=== PATIENT | male | born 1980 | race Caucasian/White ===

== ENCOUNTER → 2018-04-09 16:17 | Outpatient (CLI) | payer OTHER, SELFPAY ==
--- NOTE | 2018-04-09 | DI.MRI.S_ITS ---
PROCEDURE: MR LUMBAR SPINE WO CON INDICATIONS: LOW BACK AND BIALTERAL HIP PAIN. LEFT LEG PAIN TECHNIQUE: Noncontrast sagittal T1 spin echo and T2 fast echo, sagittal STIR, axial T1 and T2 fast spin echo through the lumbar spine. In cases with scoliosis, additional coronal T2 fast spin echo may be performed. COMPARISON: None. FINDINGS: Image quality: Excellent. Alignment and Curvature: There is normal bony alignment. Bone Marrow: Marrow is of normal overall signal. No acute vertebral body compression fractures. Spinal Cord: Conus medullaris terminates at the T12 level. Visualized cord demonstrates normal signal and size. Paraspinous Soft Tissues: No paravertebral masses. An intraosseous hemangiomas present at L1. L1-L2: Normal appearance. L2-L3: Normal appearance. L3-L4: Mild facet and ligamentum flavum hypertrophy. No canal stenosis. No neural foraminal stenosis. L4-L5: Mild disc desiccation. Broad-based disc bulge. Small posterior focal high intensity zone. Mild facet and ligamentum flavum hypertrophy. Mild canal stenosis. No neural foraminal stenosis. The enlarged left facet abuts the exiting left nerve root at this level (series 4, image 13). L5-S1: Normal appearance. IMPRESSION: 1. Mild disc desiccation, disc bulge, and mild canal stenosis at L4-5 2. L4-L5 posterior annular fibrosis tear. 3. Exiting left nerve root at L4-5 abuts the enlarged facet joint. It is unclear whether this may be the etiology of the patient's back pain. 4. No other canal stenosis or foraminal narrowing of the lumbar spine. Dictated by: Augusta Patten M.D. on 04/12/2018 at 8:24 Approved by: Augusta Patten M.D. on 04/12/2018 at 8:28
== END ==
PROVIDERS: PCP Physician Assistant; Visit Provider Physician Assistant
DX: M51.26 Other intervertebral disc displacement, lumbar region (principal); M48.061 Spinal stenosis, lumbar region without neurogenic claudication; M25.552 Pain in left hip; M25.551 Pain in right hip; M79.605 Pain in left leg
CPT/HCPCS: 72148

== ENCOUNTER 2019-06-15 09:44 | Emergency (ER) | payer OTHER, SELFPAY ==
[2019-06-15 09:45] VITALS: BP 130/77; PULSE 88; RESP 18; TEMP 36.8; O2SAT 99
--- NOTE | 2019-06-15 10:06 | ED_ITS ---
HPI - General Adult General Chief complaint: Chest Pain Stated complaint: Think he had a mild heart attack last night Time Seen by Provider: 06/15/19 09:48 Source: patient Mode of arrival: Ambulatory Limitations: no limitations History of Present Illness HPI narrative: This is a 39-year-old male who comes to the emergency department with concern that he may have had a mild heart attack last night. Patient states last night he woke up, he went to check on his son and he noted he was really shivering. He states that he felt like his chest hurts sort of centralized and radiated all the around towards his back. He felt chilled. He felt like there was a piece of food stuck in his chest. Patient states he ho pped in the shower. He usually does this when he is uncomfortable. He states the episode lasted a couple minutes at the most. It occurred at midnight. He felt a little short of breath, he denies any syncope or passing out or lightheadedness. He did feel nauseated but did not vomit. Denies any issues with bowel movements, denies any issues with urination. Denies any swelling or changes to his lower extremities. Patient states that he has been taking Prevacid, he has been taking intermittently because he notes that he seems to get chest pain when he takes it and then stops at the chest pain goes away. Patient has been taking that for GERD, he does follow with a physician regularly. Denies any other past medical history, no prior surgeries. His father has a history of sarcoid. He does smoke, denies alcohol, occasional THC. He is also accompanied by his son for evaluation he has recently had fevers up to 104 F had a recent ?stomach bug.? Related Data Allergies Allergy/AdvReac Type Severity Reaction Status Date / Time No Known Drug Allergies Allergy Verified 06/15/19 10:00 Review of Systems Review of Systems ROS Unobtainable: All systems reviewed & are unremarkable except as noted in HPI and below Constitutional Constitutional: Reports chills, Denies fever(s), Denies lethargy and Denies weakness Cardiovascular Cardiovascular: Reports chest pain (chest/back), Denies diaphoresis, Denies syncope, Denies rapid heart rate, Denies edema, Denies irregular heart rhythm, Denies lightheadedness, Denies radiating jaw, neck or arm pain, Denies palpitations, Reports dyspnea, Denies dyspnea on exertion and Denies orthopnea Respiratory Respiratory: Denies change in phlegm color, Denies chest congestion, Denies cough, Reports dyspnea, Denies dyspnea on exertion and Denies wheezing Gastrointestinal Gastrointestinal: Denies abdominal pain, Denies change in bowel habits, Denies constipation, Denies diarrhea, Reports nausea and Denies vomiting Genitourinary Genitourinary: Denies hematuria, Denies difficulty urinating, Denies dysuria, Denies flank pain, Denies urinary frequency, Denies urinary hesitancy, Denies urinary incontinence and Denies urinary urgency Musculoskeletal Musculoskeletal: Reports back pain (chronic) Integumentary/Breasts Skin/Breast: Denies rash Neurologic Neurologic: Denies syncope and Denies weakness Endocrine Endocrine: Denies palpitations Allergic/Immunologic Allergic/Immunologic: Denies wheezing [facility] Medical History GERD (gastroesophageal reflux disease) (Acute) Morbid obesity (Acute) Social History Smoking Status: Current every day smoker Family History (Updated 06/15/19 @ 10:10 by Shelley Kahn DO) Father Sarcoid Social History (Updated 06/15/19 @ 10:10 by Shelley Kahn DO) Smoking Status: Current every day smoker alcohol intake: never substance use type: marijuana Exam Narrative Exam Narrative: GENERAL: Alert and oriented x three, obese, well-appearing male in no acute distress. HEENT: Head normocephalic, atraumatic, EOMI, pupils reactive, face symmetric, moist mucous membranes NECK: Supple, full range of motion CARDIOVASCULAR: Regular rate and rhythm without murmurs, rubs or gallops. Non reproducible chest pain. RESPIRATORY: Breath sounds equal bilaterally, no wheezes rales or rhonchi. ABDOMEN: Soft, nontender. Normoactive bowel sounds all 4 quadrants. No guarding or rebound, rigidity, no mass, no bruit or pulsatile mass. : No CVA tenderness EXTREMITIES: Normal range of motion, no edema bilateral lower extremities. Neurovascularly intact NEUROLOGICAL: Cranial nerves II through XII grossly intact. Moving all extremities SKIN: Warm, dry, no petechiae, no rashes or lesions. Initial Vital Signs Initial Vital Signs: Vital Signs Temperature 98.3 F 06/15/19 09:45 Pulse Rate 88 06/15/19 09:45 Respiratory Rate 18 06/15/19 09:45 Blood Pressure 130/77 06/15/19 09:45 Pulse Oximetry 99 06/15/19 09:45 Scores HEART Score Heart Score history: Slightly Suspicious Heart Score EKG: Normal Heart Score Age: < 45 years old Heart Score risk factors: 1-2 risk factors Heart Score troponin: < or = to normal limit Heart Score Total: 1 Course Orders Ordered: Discontinued Medications Aspirin (Aspirin Chew) 324 mg PO NOW ONE Stop: 06/15/19 10:08 Last Admin: 06/15/19 10:13 Dose: 324 mg Documented by: ROSAS Sodium Chloride (Normal Saline 0.9%) 1,000 mls @ 150 mls/hr IV CONT EDWIGE Last Infusion: 06/15/19 11:31 Dose: 0 mls/hr Documented by: Admin: 06/15/19 10:13 Dose: 150 mls/hr Documented by: ROSAS Vital Signs Vital signs: Vital Signs - 8 hr 06/15/19 09:45 06/15/19 10:32 06/15/19 11:03 Temperature 98.3 F Pulse Rate 88 87 87 Respiratory Rate 18 21 19 Blood Pressure 130/77 Blood Pressure [Right Arm] 111/62 106/64 Pulse Oximetry 99 98 97 Medical Decision Making Lab Data Lab results reviewed: Yes I reviewed the patient's lab results. Result diagrams: 06/15/19 10:05 06/15/19 10:05 Labs: Lab Results 06/15/19 06/15/19 Range/Units 10:05 10:05 WBC 4.8 (4.5-11.0) X10^3/uL RBC 5.23 (4.5-5.9) X10^6/uL Hgb 16.0 (13.5-17.5) g/dL Hct 45.9 (41-53) % MCV 87.7 (80-100) fL MCH 30.5 (26-34) PG MCHC 34.8 (30-36) % RDW 13.0 (11.6-14.8) % Plt Count 147 L (150-400) X10^3/uL Neut % (Auto) 75.0 (50-75) % Lymph % (Auto) 15.8 L (25-40) % [place] % (Auto) 7.7 (3-14) % Eos % (Auto) 1.1 L (2-4) % Baso % (Auto) 0.4 (0-2) % Neut # (Auto) 3600 (2271-2915) /uL Lymph # (Auto) 800 L (7302-0135) /uL [place] # (Auto) 400 (0-900) /uL Eos # (Auto) 100 (0-450) /uL Baso # (Auto) 0 (0-100) /uL Sodium 140 (137-145) mmol/L Potassium 4.6 (3.4-5.1) mmol/L Chloride 104 (98-107) mmol/L Carbon Dioxide 26 (22-32) mmol/L BUN 14 (9-20) mg/dL Creatinine 0.80 (0.66-1.25) mg/dL Estimated GFR > 60.0 (>60) mL/min BUN/Creatinine Ratio 17.5 (6-22) Glucose 139 H (70-100) mg/dL Calcium 9.6 (8.4-10.2) mg/dL Total Bilirubin 0.7 (0.2-1.3) mg/dL AST 33 (17-59) IU/L ALT 35 (21-72) IU/L Alkaline Phosphatase 54 (38-126) U/L Total Creatine Kinase 106 (55-170) U/L CK-MB (CK-2) 0.35 (<2.37) ng/mL CK-MB (CK-2) Rel Index 0.3 L (1.5-5.0) % Troponin I < 0.012 (0.01-0.034) ng/mL Total Protein 7.8 (6.3-8.2) g/dL Albumin 4.6 (3.5-5.0) g/dL Globulin 3.2 (1.7-4.1) g/dL Albumin/Globulin Ratio 1.4 (1.0-2.8) Lipase 48 (23-300) U/L Imaging Data Chest x-ray: Radiologist's impression: [address] [address] XRay Report Signed Patient: Marta Tinoco#: [id number] : 1980Acct:[id number] Age/Sex: 39 / MDate of Service: 06/15/19 Loc: ED Accession Number: [id number] Procedure: XR chest 1V Ordering Provider: Shelley Kahn D.O. PROCEDURE: XR CHEST 1V INDICATIONS: chills, chest pain, nausea last night TECHNIQUE: One view of the chest was acquired. COMPARISON: None. FINDINGS: Surgical changes and devices: None. Lungs and pleura: Lungs are clear. No pleural effusions or pneumothorax. Mediastinum: Mediastinal contours appear normal. Heart size is normal. Bones and chest wall: No suspicious bony lesions. Overlying soft tissues appear unremarkable. IMPRESSION: No acute process. Dictated by: Yoseph Vizcaino M.D. on 06/15/2019 at 10:26 Approved by: Yoseph Vizcaino M.D. on 06/15/2019 at 10:28 ECG Data Attestation: I personally reviewed and interpreted this ECG as follows: Prior ECG tracings: not available for review Interpretation: Sinus rhythm rate 85 P are 122 QRS of 97 QTC of 386. No acute ST changes appreciated MDM Narrative Medical decision making narrative: 39-year-old male comes in complaint with chest pain, he has also had some chills and some nausea. He has had family member who is been recently sick with fevers and nausea and vomiting. Patient was initially concerned about heart attack, troponin, EKG are negative, chest x- ray shows no acute process and patient's other lab work does not show major lab abnormalities. Discussed with patient I suspect that this may be related more to familial sickness and my suspicion for a cardiac event in particular is low. He did also ask this could be related some chronic back pain that he has we discussed that would be less likely but possible. Discussed signs and symptoms to watch for. He does have some cardiac risk factors with tobacco use and obesity. He states he does follow regularly with his primary care and has been evaluated for hypertension, dyslipidemia and cholesterol on the multiple times in the past. He also does not have any known cardiac risk factors with his family history. Discharge Plan Departure Patient Disposition: Home Clinical Impression: Atypical chest pain Discharge Date/Time: 06/15/19 11:31 Instructions: DI for Atypical Chest Pain Activity Restrictions/Additional Instructions: Follow up with primary care physician in the next 2-3 days for recheck. You can discuss possible stress testing depending on the decision between you and your physician. I would recommend stopping prevacid if you find this is making your symptoms worse. You can take a nexium instead of prevacid as an alternative. Return to the emergency department for fevers greater than 100.4 F, worsening chest pain, shortness of breath, passing out, persistent vomiting, black or bloody stools, no abdominal pain or other new or concerning symptoms. Referrals: Jeronimo Vee PA-C [Primary Care Provider] -
[2019-06-15] MEDS: SODIUM CHLORIDE 0.9% 1,000 ML 150 ML IV (10:13)
[2019-06-15] MEDS: ASPIRIN 81 MG CHEW TAB 324 MG PO (10:13)
[2019-06-15 10:18] LABS: Add Manual Diff / Slide Review NO; Basophils Absolute Auto 0 /uL (0-100); Basophils Percent Auto 0.4 % (0-2); Eosinophils Absolute Auto 100 /uL (0-450); Eosinophils Percent Auto 1.1 % (2-4); Hematocrit 45.9 % (41-53); Lymphocytes Absolute Auto 800 /uL (1100-4500); Lymphocytes Percent Auto 15.8 % (25-40); Mean Corpuscular HGB Conc 34.8 % (30-36); Mean Corpuscular Hemoglobin 30.5 PG (26-34); Mean Corpuscular Volume 87.7 fL (80-100); Monocytes Absolute Auto 400 /uL (0-900); Monocytes Percent Auto 7.7 % (3-14); Neutrophils Absolute Auto 3600 /uL (1500-7000); Platelet Count 147 X10^3/uL (150-400); Red Blood Cell Count 5.23 X10^6/uL (4.5-5.9); White Blood Cell Count 4.8 X10^3/uL (4.5-11.0)
[2019-06-15 10:28] LABS: Alanine Aminotransferase 35 IU/L (21-72); Albumin 4.6 g/dL (3.5-5.0); Albumin Globulin Ratio 1.4 (1.0-2.8); Alkaline Phosphatase 54 U/L (38-126); Aspartate Aminotransferase 33 IU/L (17-59); BUN Creatinine Ratio 17.5 (6-22); Bilirubin Total 0.7 mg/dL (0.2-1.3); Blood Urea Nitrogen 14 mg/dL (9-20); Calcium 9.6 mg/dL (8.4-10.2); Carbon Dioxide 26 mmol/L (22-32); Chloride 104 mmol/L (98-107); Creatine Kinase 106 U/L (55-170); Estimated Glomerular Filt Rate > 60.0 mL/min (>60); Globulin 3.2 g/dL (1.7-4.1); Glucose 139 mg/dL (70-100); Lipase 48 U/L (23-300); Potassium 4.6 mmol/L (3.4-5.1); Sodium 140 mmol/L (137-145); Total Protein 7.8 g/dL (6.3-8.2)
[2019-06-15 10:32] VITALS: BP 111/62; PULSE 87; RESP 21; O2SAT 98
[2019-06-15 10:32] LABS: HEMOLYSIS 65 (0-50)
[2019-06-15 10:40] LABS: Troponin I < 0.012 ng/mL (0.01-0.034)
[2019-06-15 10:44] LABS: CKMB % Relative Index 0.3 % (1.5-5.0); Creatine Kinase MB 0.35 ng/mL (<2.37)
[2019-06-15 11:03] VITALS: BP 106/64; PULSE 87; RESP 19; O2SAT 97
[2019-06-15 11:31] VITALS: BP 116/67; PULSE 86; RESP 16; TEMP 37.1; O2SAT 97
== END 2019-06-15 11:31 | disposition home or self-care (01) ==
PROVIDERS: Emergency Provider Emergency Medicine; PCP Physician Assistant
DX: R07.89 Other chest pain (principal); R11.0 Nausea
CPT/HCPCS: 36415; 71045; 80053; 82550; 82553; 83690; 84484; 85025; 93005; 96360; 99283; 99285

== ENCOUNTER 2020-05-01 14:28 | Emergency (ER) | payer OTHER, SELFPAY ==
[2020-05-01 14:45] VITALS: PULSE 69; RESP 18; TEMP 36.7; O2SAT 99
--- NOTE | 2020-05-01 14:51 | DI.RAD.S_ITS ---
PROCEDURE: XR CHEST 1V INDICATIONS: chest pain TECHNIQUE: One view of the chest was acquired. COMPARISON: [facility], CR, XR CHEST 1V, 06/15/2019, 10:14. FINDINGS: Surgical changes and devices: None. Lungs and pleura: Mild perihilar opacity bilaterally, more conspicuous. No pleural effusions or pneumothorax. Mediastinum: Mediastinal contours appear normal. Heart size is normal. Bones and chest wall: No suspicious bony lesions. Overlying soft tissues appear unremarkable. IMPRESSION: Mild perihilar airspace opacity bilaterally. This could be due to atypical infection. Less likely adenopathy. Lungs otherwise appear clear. Dictated by: Justo Townsend M.D. on 05/01/2020 at 15:24 Approved by: Justo Townsend M.D. on 05/01/2020 at 15:25
[2020-05-01 15:11] LABS: Add Manual Diff / Slide Review NO; Basophils Absolute Auto 100 /uL (0-100); Basophils Percent Auto 0.8 % (0-2); Eosinophils Absolute Auto 300 /uL (0-450); Hematocrit 43.4 % (41-53); Hemoglobin 14.6 g/dL (13.5-17.5); Lymphocytes Absolute Auto 2500 /uL (1100-4500); Lymphocytes Percent Auto 28.9 % (25-40); Mean Corpuscular HGB Conc 33.7 % (30-36); Mean Corpuscular Hemoglobin 30.1 PG (26-34); Mean Corpuscular Volume 89.3 fL (80-100); Monocytes Absolute Auto 500 /uL (0-900); Monocytes Percent Auto 5.9 % (3-14); Neutrophils Absolute Auto 5300 /uL (1500-7000); Neutrophils Percent Auto 61.4 % (50-75); Platelet Count 157 X10^3/uL (150-400); Red Blood Cell Count 4.86 X10^6/uL (4.5-5.9); Red Cell Distribution Width 13.1 % (11.6-14.8); White Blood Cell Count 8.6 X10^3/uL (4.5-11.0)
[2020-05-01 15:21] LABS: PTT Partial Thromboplastin Tim 31 SECONDS (26.4-36.2)
[2020-05-01 15:23] LABS: Alanine Aminotransferase 23 IU/L (<50); Albumin 4.2 g/dL (3.5-5.0); Albumin Globulin Ratio 1.4 (1.0-2.8); Alkaline Phosphatase 52 U/L (38-126); Aspartate Aminotransferase 22 IU/L (17-59); BUN Creatinine Ratio 13.8 (6-22); Bilirubin Total 0.4 mg/dL (0.2-1.3); Blood Urea Nitrogen 12 mg/dL (9-20); Calcium 9.3 mg/dL (8.4-10.2); Carbon Dioxide 28 mmol/L (22-32); Chloride 105 mmol/L (98-107); Creatine Kinase 83 U/L (55-170); Estimated Glomerular Filt Rate > 60.0 mL/min (>60); Globulin 2.9 g/dL (1.7-4.1); Glucose 91 mg/dL (70-100); HEMOLYSIS < 15 (0-50); Lipase 46 U/L (23-300); Potassium 4.2 mmol/L (3.4-5.1); Sodium 139 mmol/L (137-145); Total Protein 7.1 g/dL (6.3-8.2)
[2020-05-01 15:34] LABS: Troponin I < 0.012 ng/mL (0.01-0.034)
[2020-05-01 16:11] VITALS: BP 129/80; PULSE 65; O2SAT 97
[2020-05-01 16:12] VITALS: BP 129/78; PULSE 79; O2SAT 99
[2020-05-01] MEDS: MAG HYDROX/ALUMINUM/SIMETH SUS 20 ML, LIDOCAINE VISCOUS 2% 15 ML PO (16:50)
--- NOTE | 2020-05-01 17:26 | DI.CT.S_ITS ---
PROCEDURE: CT ANGIO CHEST PE PROTOCOL INDICATIONS: Chest pain, prehilar air TECHNIQUE: After the administration of intravenous contrast, 2 mm thick sections acquired from the pulmonary apices to the posterior costophrenic angles. 3-dimensional maximum intensity projection (MIP) coronal and sagittal reformats were then acquired through the thorax. For radiation dose reduction, the following was used: automated exposure control, adjustment of mA and/or kV according to patient size. COMPARISON: [facility], CR, XR CHEST 1V, 05/01/2020, 14:56. FINDINGS: Image quality: Excellent. Pulmonary arteries: Pulmonary arteries are normal in size, and demonstrate no intraluminal filling defects to suggest central pulmonary embolism. Lungs and pleura: There is a 4 mm ground-glass nodule in the right middle lobe (series 5 image 155). A solid nodule is seen in the right middle lobe (series 5 image 184). There is a 3 mm nodule in the left upper lobe (series 5, image 84) and 3 mm nodule in the left lower lobe (series 5, image 166). No pulmonary infiltrate or consolidation. No pleural effusions or pneumothorax. Central and peripheral airways are patent. Mediastinum: Heart size is normal, without pericardial effusion. No mediastinal or hilar adenopathy. Thoracic aorta is normal in caliber and enhancement. Esophagus is normal in caliber, without hiatal hernia. Bones and chest wall: No suspicious bony lesions. Ribs and thoracic spine appear intact throughout. Thyroid gland is normal. No axillary or supraclavicular adenopathy. Abdomen: Visualized upper abdominal solid organs appear normal in the early arterial phase of enhancement. IMPRESSION: 1. No findings to suggest pulmonary embolism. 2. Multiple pulmonary nodules, most likely infectious or inflammatory etiology. Please see enclosed follow-up recommendation. 3. No pneumonia. Fleischner Society criteria for SOLID lung nodule followup. Nodule size (mm)Low-risk patientHigh-risk patient?4No follow-up neededFollow-up at 12 mo; if no change, no further follow-up>4-0Lewnro-px CT at 12 mo; if no change, no further follow-up needed.Initial follow-up CT at 6-12 mo, then 18-24 mo if no change. >6-8Initial follow-up CT at 6-12 mo, then 18-24 mo if no change. Initial follow-up CT at 3-6 mo, then 9-12 mo and 24 mo if no change. >8Follow-up CT at 3, 9, 24 mo. Or PET and/or biopsy.Same as for low-risk pts. Fleischner Society criteria for SUB-SOLID lung nodule followup. Solitary pure ground-glass nodules5 mm or lessNo followup needed. >5 mm3 mo follow-up CT to confirm persistence. Then annual CT for 3 years. Part-solid nodules3 mo follow-up CT to confirm persistence. If persistent with solid component <5 mm, annual CT for at least 3 years. If solid component is 5 mm or more, biopsy or surgical resection. Consider PET-CT for lesions > 10 mm. Multiple sub-solid nodulesPure ground glass nodules [address] at 2 and 4 years. Pure ground glass nodules >5 mm without dominant lesion. [address] to confirm persistence, then annual followup CT for at least 3 years. Dominant nodule(s) with part-solid or solid component. [address] to confirm persistence. If persistent, consider biopsy or surgical resection, zoran if lesions have >5 mm solid component. Dictated by: Amador Dutta M.D. on 05/01/2020 at 17:23 Approved by: Amador Dutta M.D. on 05/01/2020 at 17:32
[2020-05-01] MEDS: PANTOPRAZOLE 40 MG VIAL IV (18:25)
--- NOTE | 2020-05-01 19:08 | ED.SYNCOPE ---
HPI - Syncope <ZENY Richter - Last Filed: 05/01/20 21:06> General Chief Complaint: Syncope Stated Complaint: NAUSEA DIARRHEA PASSED OUT RT SHOULDER PAIN Time Seen by Provider: 05/01/20 16:15 Source: patient Mode of arrival: Ambulatory History of Present Illness HPI narrative: 40yo male with known GERD, presents to to the emergency department for an episode of syncope last night. He states he frequently has heartburn and takes an anti acid medication every morning. However, he frequently misses days. Patient states he has not taken his an acid medication for the past few days, he woke up in the middle night feeling diaphoretic, nauseated, and felt like he was about to have an episode of diarrhea. He walked to the bathroom and his stomach started to down. On the way out he felt dizzy and his said he fell to the floor and laid there staring at the ceiling for approximately 1 minute. Patient states he was near his bed so he crawled into bed and went to sleep. He denied hitting his head, denies any vomiting. Patient states he took his medication for urine to bed and felt better in the morning. He does have intermittent epigastric burning that is often relieved with Prilosec. He states this has been ongoing for the past few years. Patient states he eats a lot of spicy foods, chocolate, and caffeine. He denies any history of cardiac issues, blood thinners, or history of PE. Patient denies any fevers, chills, abdominal pain at this time, nausea, vomiting, diarrhea, or other concerns. Related Data Previous Rx's Medication Instructions Recorded omeprazole 20 mg PO BID 14 Days #28 cap 05/01/20 Allergies Allergy/AdvReac Type Severity Reaction Status Date / Time No Known Drug Allergies Allergy Verified 06/15/19 10:00 Review of Systems <ZENY Richter - Last Filed: 05/01/20 21:06> Review of Systems Narrative: REVIEW OF SYSTEMS: GENERAL: Denies fever, chills, malaise, or wt. loss. HENT: No head trauma. EYES: No vision changes. CARDIOVASCULAR: No chest pain, palpitations, or orthopnea. RESPIRATORY: No shortness of breath or cough. GASTROINTESTINAL: Complains of epigastric pain, see HPI GENITOURINARY: No flank pain, urinary incontinence, hesitancy, frequency, or dysuria. MUSCULOSKELETAL: No pain, weakness, or trauma. INTEGUMENTARY: No rash, lesions, or pruritus. NEURO: No numbness or tingling. PSYCH: No behavior or mood changes. Patient History <ZENY Richter - Last Filed: 05/01/20 21:06> Medical History GERD (gastroesophageal reflux disease) (Acute) Morbid obesity (Acute) Family History Father Sarcoid Social History Smoking Status: Current every day smoker alcohol intake: never substance use type: marijuana Smoking Status: Current every day smoker alcohol intake frequency: 0-2 drinks per day Substance Use Type: marijuana Exam <ZENY Richter - Last Filed: 05/01/20 21:06> Initial Vital Signs Initial Vital Signs: Vital Signs Temperature 98.1 F 05/01/20 14:45 Pulse Rate 69 05/01/20 14:45 Respiratory Rate 18 05/01/20 14:45 Pulse Oximetry 99 05/01/20 14:45 PHYSICAL EXAMINATION: GENERAL: Well groomed, alert, and cooperative. Answers questions promptly and appropriately. Vital signs noted. HENT: Normocephalic, atraumatic. Hearing intact. Oral mucosa is pink and moist. EYES: Conjunctiva pink, sclera white, no periorbital swelling. CARDIOVASCULAR: S1 and S2 sounds normal. Regular rate and rhythm, no murmurs, clicks, or bruits. No pedal edema. RESPIRATORY: Normal respiratory rate, trachea midline, airway patent. No stridor, nasal flaring or accessory muscle use. Lungs are clear in all martinez without wheeze, rhonchi, or crackles. GASTROINTESTINAL: Bowel sounds normoactive. Abdomen is soft, slight epigastric tenderness. No organomegaly, no palpable masses. GENITALURINARY: No flank tenderness. MUSCULOSKELETAL: Normal gait and coordination. Equal tone and mass bilaterally. EXTREMITIES: CMS intact, no pedal edema. SKIN: Warm, dry, soft, appropriate color for ethnicity. No lesions, rashes, or wounds to visualized areas. NEURO: Alert and Oriented X 3. Good coordination. No ataxia, or sensory deficits, or cognitive issues. PSYCH: Appropriate affect and mood. <Anthony Peña MD - Last Filed: 05/02/20 13:27> Initial Vital Signs Initial Vital Signs: Vital Signs Temperature 98.1 F 05/01/20 14:45 Pulse Rate 69 05/01/20 14:45 Respiratory Rate 18 05/01/20 14:45 Pulse Oximetry 99 05/01/20 14:45 Course <ZENY Richter - Last Filed: 05/01/20 21:06> Course Course Narrative: Patient was given GI cocktail, reports complete resolution of pain after administration. After discussion of x-ray findings with Dr. Peña, he recommended CT angio. Patient was also given pantoprazole this time. Continue denies symptoms upon discharge. Orders Ordered: Discontinued Medications Al Hydrox/Mg Hydrox/Simethicone 20 ml/ Lidocaine HCl 15 ml 0 ml PO NOW ONE Stop: 05/01/20 16:28 Last Admin: 05/01/20 16:50 Dose: 20 ml Documented by: SCANAPO Pantoprazole Sodium (Protonix) 40 mg IV NOW ONE Stop: 05/01/20 18:20 Last Admin: 05/01/20 18:25 Dose: 40 mg Documented by: SCANAPO Consultations Consultation #1: Patient staffed with Dr. Peña discussed test, test results, plan of care. Vital Signs Vital signs: Vital Signs - 8 hr 05/01/20 14:45 05/01/20 16:11 05/01/20 16:12 Temperature 98.1 F Pulse Rate 69 65 79 Respiratory Rate 18 Blood Pressure 129/80 129/78 Pulse Oximetry 99 97 99 <Anthony Peña MD - Last Filed: 05/02/20 13:27> Orders Ordered: Discontinued Medications Al Hydrox/Mg Hydrox/Simethicone 20 ml/ Lidocaine HCl 15 ml 0 ml PO NOW ONE Stop: 05/01/20 16:28 Last Admin: 05/01/20 16:50 Dose: 20 ml Documented by: SCANAPO Pantoprazole Sodium (Protonix) 40 mg IV NOW ONE Stop: 05/01/20 18:20 Last Admin: 05/01/20 18:25 Dose: 40 mg Documented by: SCANAPO Vital Signs Vital signs: Vital Signs - 8 hr 05/01/20 14:45 05/01/20 16:11 05/01/20 16:12 Temperature 98.1 F Pulse Rate 69 65 79 Respiratory Rate 18 Blood Pressure 129/80 129/78 Pulse Oximetry 99 97 99 MDM - Syncope <ZENY Richter - Last Filed: 05/01/20 21:06> Medical Records Attestation: I reviewed the patient's medical records. Lab Data Attestation: I reviewed the patient's lab results. Result diagrams: 05/01/20 15:02 05/01/20 15:02 Labs: Lab Results 05/01/20 05/01/20 05/01/20 Range/Units 15:02 15:02 15:02 WBC 8.6 (4.5-11.0) X10^3/uL RBC 4.86 (4.5-5.9) X10^6/uL Hgb 14.6 (13.5-17.5) g/dL Hct 43.4 (41-53) % MCV 89.3 (80-100) fL MCH 30.1 (26-34) PG MCHC 33.7 (30-36) % RDW 13.1 (11.6-14.8) % Plt Count 157 (150-400) X10^3/uL Neut % (Auto) 61.4 (50-75) % Lymph % (Auto) 28.9 (25-40) % Hodgeman % (Auto) 5.9 (3-14) % Eos % (Auto) 3.0 (2-4) % Baso % (Auto) 0.8 (0-2) % Neut # (Auto) 5300 (1779-5755) /uL Lymph # (Auto) 2500 (6820-7823) /uL Hodgeman # (Auto) 500 (0-900) /uL Eos # (Auto) 300 (0-450) /uL Baso # (Auto) 100 (0-100) /uL PT 12.0 (10.1-12.7) SECONDS INR 1.0 (0.9-1.3) APTT 31 (26.4-36.2) SECONDS Sodium 139 (137-145) mmol/L Potassium 4.2 (3.4-5.1) mmol/L Chloride 105 (98-107) mmol/L Carbon Dioxide 28 (22-32) mmol/L BUN 12 (9-20) mg/dL Creatinine 0.87 (0.66-1.25) mg/dL Estimated GFR > 60.0 (>60) mL/min BUN/Creatinine Ratio 13.8 (6-22) Glucose 91 (70-100) mg/dL Calcium 9.3 (8.4-10.2) mg/dL Total Bilirubin 0.4 (0.2-1.3) mg/dL AST 22 (17-59) IU/L ALT 23 (<50) IU/L Alkaline Phosphatase 52 (38-126) U/L Total Creatine Kinase 83 (55-170) U/L CK-MB (CK-2) TNP CK-MB (CK-2) Rel Index TNP Troponin I < 0.012 (0.01-0.034) ng/mL Total Protein 7.1 (6.3-8.2) g/dL Albumin 4.2 (3.5-5.0) g/dL Globulin 2.9 (1.7-4.1) g/dL Albumin/Globulin Ratio 1.4 (1.0-2.8) Lipase 46 (23-300) U/L Imaging Data Chest x-ray: Radiologist's Impression: [address] [address] XRay Report Signed Patient: Trent Tinoco CMR#: [id number] : 1980Acct:[id number] Age/Sex: 40 / MDate of Service: 05/01/20 Loc: ED Accession Number: [id number] Procedure: XR chest 1V Ordering Provider: Anthony Peña MD PROCEDURE: XR CHEST 1V INDICATIONS: chest pain TECHNIQUE: One view of the chest was acquired. COMPARISON: [facility], CR, XR CHEST 1V, 06/15/2019, 10:14. FINDINGS: Surgical changes and devices: None. Lungs and pleura: Mild perihilar opacity bilaterally, more conspicuous. No pleural effusions or pneumothorax. Mediastinum: Mediastinal contours appear normal. Heart size is normal. Bones and chest wall: No suspicious bony lesions. Overlying soft tissues appear unremarkable. IMPRESSION: Mild perihilar airspace opacity bilaterally. This could be due to atypical infection. Less likely adenopathy. Lungs otherwise appear clear. Dictated by: Justo Townsend M.D. on 05/01/2020 at 15:24 Approved by: Justo Townsend M.D. on 05/01/2020 at 15:25 CTA: Radiologist's Impression: [address] [address] [address] Scan Report Signed Patient: Trent Tinoco CMR#: [id number] : 1980Acct:[id number] Age/Sex: 40 / MDate of Service: 05/01/20 Loc: ED Accession Number: [id number] Procedure: CT angio chest PE protocol Ordering Provider: Maddie Calles PROCEDURE: CT ANGIO CHEST PE PROTOCOL INDICATIONS: Chest pain, prehilar air TECHNIQUE: After the administration of intravenous contrast, 2 mm thick sections acquired from the pulmonary apices to the posterior costophrenic angles. 3-dimensional maximum intensity projection (MIP) coronal and sagittal reformats were then acquired through the thorax. For radiation dose reduction, the following was used: automated exposure control, adjustment of mA and/or kV according to patient size. COMPARISON: [facility], CR, XR CHEST 1V, 05/01/2020, 14:56. FINDINGS: Image quality: Excellent. Pulmonary arteries: Pulmonary arteries are normal in size, and demonstrate no intraluminal filling defects to suggest central pulmonary embolism. Lungs and pleura: There is a 4 mm ground-glass nodule in the right middle lobe (series 5 image 155). A solid nodule is seen in the right middle lobe (series 5 image 184). There is a 3 mm nodule in the left upper lobe (series 5, image 84) and 3 mm nodule in the left lower lobe (series 5, image 166). No pulmonary infiltrate or consolidation. No pleural effusions or pneumothorax. Central and peripheral airways are patent. Mediastinum: Heart size is normal, without pericardial effusion. No mediastinal or hilar adenopathy. Thoracic aorta is normal in caliber and enhancement. Esophagus is normal in caliber, without hiatal hernia. Bones and chest wall: No suspicious bony lesions. Ribs and thoracic spine appear intact throughout. Thyroid gland is normal. No axillary or supraclavicular adenopathy. Abdomen: Visualized upper abdominal solid organs appear normal in the early arterial phase of enhancement. IMPRESSION: 1. No findings to suggest pulmonary embolism. 2. Multiple pulmonary nodules, most likely infectious or inflammatory etiology. Please see enclosed follow-up recommendation. 3. No pneumonia. Fleischner Society criteria for SOLID lung nodule followup. Nodule size (mm)Low-risk patientHigh-risk patient?4No follow-up neededFollow-up at 12 mo; if no change, no further follow-up>[id number] CT at 12 mo; if no change, no further follow-up needed.Initial follow-up CT at 6-12 mo, then 18-24 mo if no change. >6-8Initial follow-up CT at 6-12 mo, then 18-24 mo if no change. Initial follow-up CT at 3-6 mo, then 9-12 mo and 24 mo if no change. >8Follow-up CT at 3, 9, 24 mo. Or PET and/or biopsy.Same as for low-risk pts. Fleischner Society criteria for SUB-SOLID lung nodule followup. Solitary pure ground-glass nodules5 mm or lessNo followup needed. >5 mm3 mo follow-up CT to confirm persistence. Then annual CT for 3 years. Part-solid nodules3 mo follow-up CT to confirm persistence. If persistent with solid component <5 mm, annual CT for at least 3 years. If solid component is 5 mm or more, biopsy or surgical resection. Consider PET-CT for lesions > 10 mm. Multiple sub-solid nodulesPure ground glass nodules [address] at 2 and 4 years. Pure ground glass nodules >5 mm without dominant lesion. [address] to confirm persistence, then annual followup CT for at least 3 years. Dominant nodule(s) with part-solid or solid component. [address] to confirm persistence. If persistent, consider biopsy or surgical resection, zoran if lesions have >5 mm solid component. Dictated by: Amador Dutta M.D. on 05/01/2020 at 17:23 Approved by: Amador Dutta M.D. on 05/01/2020 at 17:32 ECG Data Interpretation: Normal sinus rhythm, rate 85, MA interval 122, QTC 410. No ST elevation or ST depression. T-wave inversion noted in V1 which is consistent with prior EKG from 06/15/2019. EKG also viewed by Dr. Peña per protocol MDM Narrative Medical decision making narrative: 40-year-old male presents emergency department for an episode of what appears to be most likely vaso-vagal syncope given reports of days of nausea and diarrhea prior to episode. Patient has a significant history of GERD, has not been taking his current medications over the past few days, has been eating a lot of spicy foods. Less likely cardiac syncope given normal troponin and lack of concerning findings an EKG. CT angio was performed given risk for PE and air seen on chest x-ray, CT without significant findings other than pulmonary nodules which may be due to inflammatory etiology. This would be consistent with significant GERD. Less likely pneumonia given lack of significant symptoms such as tachycardia or fever, lungs clear without rhonchi or rales. Additionally, patient reported almost complete resolution of symptoms after GI cocktail and Protonix. Less likely bleeding ulcer given lack of dark stools, hemoglobin and hematocrit within normal limits, actual complete syncope is questionable as well. No signs of CVA. Patient was started on twice a day omeprazole, he was encouraged to follow up with his PCP immediately for further evaluation and testing as a suspect an EGD would be appropriate. Very strict return precautions given for new or worsening symptoms. Patient agreed to plan of care verbalized understanding. <Anthony Peña MD - Last Filed: 05/02/20 13:27> Lab Data Labs: Lab Results 05/01/20 05/01/20 05/01/20 Range/Units 15:02 15:02 15:02 WBC 8.6 (4.5-11.0) X10^3/uL RBC 4.86 (4.5-5.9) X10^6/uL Hgb 14.6 (13.5-17.5) g/dL Hct 43.4 (41-53) % MCV 89.3 (80-100) fL MCH 30.1 (26-34) PG MCHC 33.7 (30-36) % RDW 13.1 (11.6-14.8) % Plt Count 157 (150-400) X10^3/uL Neut % (Auto) 61.4 (50-75) % Lymph % (Auto) 28.9 (25-40) % Hodgeman % (Auto) 5.9 (3-14) % Eos % (Auto) 3.0 (2-4) % Baso % (Auto) 0.8 (0-2) % Neut # (Auto) 5300 (7661-8999) /uL Lymph # (Auto) 2500 (2276-7871) /uL Hodgeman # (Auto) 500 (0-900) /uL Eos # (Auto) 300 (0-450) /uL Baso # (Auto) 100 (0-100) /uL PT 12.0 (10.1-12.7) SECONDS INR 1.0 (0.9-1.3) APTT 31 (26.4-36.2) SECONDS Sodium 139 (137-145) mmol/L Potassium 4.2 (3.4-5.1) mmol/L Chloride 105 (98-107) mmol/L Carbon Dioxide 28 (22-32) mmol/L BUN 12 (9-20) mg/dL Creatinine 0.87 (0.66-1.25) mg/dL Estimated GFR > 60.0 (>60) mL/min BUN/Creatinine Ratio 13.8 (6-22) Glucose 91 (70-100) mg/dL Calcium 9.3 (8.4-10.2) mg/dL Total Bilirubin 0.4 (0.2-1.3) mg/dL AST 22 (17-59) IU/L ALT 23 (<50) IU/L Alkaline Phosphatase 52 (38-126) U/L Total Creatine Kinase 83 (55-170) U/L CK-MB (CK-2) TNP CK-MB (CK-2) Rel Index TNP Troponin I < 0.012 (0.01-0.034) ng/mL Total Protein 7.1 (6.3-8.2) g/dL Albumin 4.2 (3.5-5.0) g/dL Globulin 2.9 (1.7-4.1) g/dL Albumin/Globulin Ratio 1.4 (1.0-2.8) Lipase 46 (23-300) U/L Discharge Plan Departure Patient Disposition: Home Clinical Impression: Vasovagal syncope Gastroesophageal reflux disease Qualifiers: Esophagitis presence: esophagitis presence not specified Qualified Code(s): K21.9 - Gastro-esophageal reflux disease without esophagitis Discharge Date/Time: 05/01/20 18:59 Instructions: DI for Syncope in Adults (Fainting), DI for Gastroesophageal Reflux Disease (GERD) Activity Restrictions/Additional Instructions: Thank you for entrusting me with your care today. As discussed, your CT scan shows some pulmonary nodules, this may be related to inflammation. It is important that you follow-up with your doctor as they will continue to monitor these nodules. I suspect muscle your symptoms are caused by significant acid reflux. Please make an appointment with your primary care provider in the next week for further evaluation. Take omeprazole twice a day, morning and night to help decrease acid. Decrease caffeine, chocolate, and consumption of spicy foods. Return emergency department for any new or worsening symptoms such as syncope, severe pain, high fevers, or other concerns. Prescriptions: New omeprazole 20 mg capsule,delayed release(DR/EC) 20 mg PO BID 14 Days Qty: 28 RF: 0 <Anthony Peña MD - Last Filed: 05/02/20 13:27> Cosign ED Attending Cosignature Attestation: I personally evaluated and examined the patient and agree with the assessment, treatment plan, and disposition of the patient as recorded by the APC.
== END 2020-05-01 18:59 | disposition home or self-care (01) ==
PROVIDERS: Emergency Medicine; Emergency Provider Nurse Practitioner
DX: R55 Syncope and collapse (principal); K21.9 Gastro-esophageal reflux disease without esophagitis; R42 Dizziness and giddiness; R10.13 Epigastric pain; E66.01 Morbid (severe) obesity due to excess calories; R07.9 Chest pain, unspecified
CPT/HCPCS: 36415; 71045; 71275; 80053; 82550; 83690; 84484; 85025; 85610; 85730; 93005; 93010; 96374; 99284; C9113